=== PATIENT | male | born 1965 | race Caucasian/White ===

== ENCOUNTER 2018-11-16 00:01 | Emergency (ER) | payer MEDICAID ==
[~2018-11-16] VITALS: Ht 172.7 cm; Wt 76.8 kg
[2018-11-16 04:42] VITALS: BP 165/91
== END 2018-11-16 04:42 | disposition home or self-care (01) ==
LOC: ED 00:01
DX: R20.2 Paresthesia of skin (principal)
CPT/HCPCS: Q0092

== ENCOUNTER 2019-10-21 00:19 | Emergency (ER) | payer MEDICAID, SELFPAY ==
[~2019-10-21] VITALS: Ht 172.7 cm; Wt 77.1 kg
[2019-10-21 00:20] VITALS: BP 125/54; Ht 172.7 cm; Wt 77.1 kg
== END 2019-10-21 01:32 | disposition home or self-care (01) ==
LOC: ED 00:19
DX: U07.1 COVID-19 (principal)
CPT/HCPCS: U0003-CS